=== PATIENT | male | born 1990 | race African-American/Black ===

== ENCOUNTER 2017-09-28 00:22 | Emergency (ER) | payer SELFPAY ==
[2017-09-28] MEDS ORDERED: Lidocaine 1% w/Epinephrine 1:100K 20 ML VIAL ONE ×2 (00:27→04:21)
[2017-09-28 01:02] LABS: Acetaminophen Less than 6.0 mcg/mL (10.0-30.0); Alcohol 310 mg/dL (Less than 10); Salicylate Less than 8.0 mg/dL (15.0-30.0)
[2017-09-28 01:06] LABS: ALT (SGPT) 17 U/L (8-55); AST (SGOT) 30 U/L (5-34); Albumin 4.6 g/dL (3.5-5.0); Alkaline Phosphatase 50 U/L (40-150); Anion Gap 17 mmol/L (10-20); BUN (Urea Nitrogen) 11 mg/dL (8.9-20.6); Bilirubin, Total Less than 0.2 mg/dL (0.2-1.2); Calc. Creatinine Clearance 0 mL/min (70-130); Calcium 9.2 mg/dL (7.8-10.44); Carbon Dioxide 18 mmol/L (22-29); Chloride 109 mmol/L (98-107); Estimated GFR-MDRD Greater than 90; Globulin 3.5 g/dL (2.4-3.5); Glucose 117 mg/dL (70-105); Potassium 4.4 mmol/L (3.5-5.1); Protein, Total 8.1 g/dL (6.0-8.3); Sodium 140 mmol/L (136-145)
[2017-09-28 01:13] LABS: #Basophils 0.1 thou/uL (0.0-0.2); #Eosinphils 0.1 thou/uL (0.0-0.7); #Lymphocytes 1.3 thou/uL (1.20-3.40); #Monocytes 0.4 thou/uL (0.11-0.59); #Neutrophils 3.1 thou/uL (1.40-6.50); %Basophils 2.1 % (0.0-1.0); %Eosinophils 2.5 % (0.0-10.0); %Lymphocytes 25.6 % (21.0-51.0); %Monocytes 8.4 % (0.0-10.0); %Neutrophils 61.4 % (42.0-75.0); Hemoglobin 13.8 g/dL (14.0-18.0); Mean Corpuscular HGB CONC 33.6 g/dL (32.0-36.0); Mean Corpuscular Volume 89.4 fl (80.0-94.0); Mean Platelet Volume 7.5 fL (7.4-10.4); Platelet Count 302 thou/uL (130-400); RBC Distribution Width 12.4 % (11.5-14.5); Red Blood Cell (RBC) Count 4.61 mill/uL (4.70-6.10)
[2017-09-28] MEDS ORDERED: Adacel (T-DAP) 0.5 ML VIAL ONE (03:23)
--- NOTE | 2017-09-28 09:05 | RAD ---
RIGHT FOREARM 2 VIEWS: Date: 09/28/17 HISTORY: Trauma to forearm. FINDINGS: There is evidence of soft tissue injury without a foreign body. No fracture is identified. IMPRESSION: No evidence of fracture. POS: [facility]
== END 2017-09-28 05:14 | disposition home or self-care (01) ==
LOC: ERS 00:22
DX: S51.811A Laceration without foreign body of right forearm, initial encounter (principal); F10.129 Alcohol abuse with intoxication, unspecified; W25.XXXA Contact with sharp glass, initial encounter
CPT/HCPCS: 13121; 80053; 80307; 85025; 86850; 86870; 86900; 86901; 90471; 90715; J2001

== ENCOUNTER 2017-10-07 08:27 | Emergency (ER) | payer SELFPAY ==
[2017-10-07] MEDS ORDERED: Bacitracin Zinc 1 Packet ONE (09:01)
== END 2017-10-07 10:56 | disposition home or self-care (01) ==
LOC: ERS 08:27
DX: S51.811D Laceration without foreign body of right forearm, subsequent encounter (principal)

== ENCOUNTER 2017-12-13 00:31 | Emergency (ER) | payer SELFPAY | END 2017-12-13 01:40 | LOC: ERS 00:31 | DX: S06.0X0A Concussion without loss of consciousness, initial encounter (principal); S01.01XA Laceration without foreign body of scalp, initial encounter; Y04.8XXA Assault by other bodily force, initial encounter | CPT/HCPCS: 12001; 12011 ==